=== PATIENT | male | born 1980 | race Caucasian/White ===

== ENCOUNTER → 2016-11-04 | Outpatient (CLI) | payer BC ==
--- NOTE | 2016-11-04 12:40 | PCVCIMAG ---
APPROVED REPORT Study performed: 11/04/2016 10:44:23 EXAM: Comprehensive 2D, Doppler, and color-flow Echocardiogram Status: routine Other Information Study Quality: Adequate Indications Aortic Valve Disease Atrial Fibrillation Ross Procedure with AVR 2D Dimensions LVEF(%): 60.49 (>50%) IVSd: 13.80 (7-11mm)LVOT Diam: 23.30 (18-24mm) LVDd: 58.65 mm PWd: 13.67 (7-11mm)Ascending Ao: 46.00 (22-36mm) LVDs: 39.40 (25-40mm) Left Atrium: 52.87 (27-40mm) Aortic Root: 47.22 mm LV Single Plane 4CH: 43.85 % LV Single Plane 2CH: 57.33 %Castillo's LVEF: 50.59 % Biplane EF: 50.6 % Volumes Left Atrial Volume (Systole) Single Plane 4CH: 133.72 mLSingle Plane 2CH: 110.92 mL LA ESV Index: 58.00 mL/m2 Aortic Valve AoV Peak Saurabh.: 2.02 m/s AO Peak Gr.: 16.30 mmHgLVOT Max P.69 mmHg AO Mean Gr.: 8.32 mmHgLVOT Mean P.05 mmHg AO V2 Mean: 1.35 m/sLVOT Max V: 1.39 m/s AO V2 VTI: 47.16 cmLVOT Mean V: 0.94 m/s LOLA (VTI): 2.86 [id number] V1 VTI: 31.60 cm LOLA Vmax: 2.93 cm2 AI Vmax: 4.02 m/sSV (LVOT): 134.65 mL AI Collin: 3.01 m/s2 AI PHT: 387.40 ms Mitral Valve MV Peak Gr.: 9.81 mmHg MV Mean Gr.: 3.33 mmHgE/A Ratio: 1.7 MV Decel. Time: 190.62 ms MV E Max Saurabh.: 1.49 m/s MV A Saurabh.: 0.89 m/s MV Max Saurabh.: 1.57 m/s MV Mean Saurabh.: 0.85 m/s MV VTI: 503.40 mm MVA VTI: 267.47 mm2 MV PHT: 102.96 ms MVA (PHT): 2.14 cm2 IVRT: 79.58 ms Pulmonary Valve PV Peak Saurabh.: 2.75 m/sPV Peak Gr.: 30.44 mmHg Pulmonary Vein P Vein S: 0.28 m/sP Vein A: 0.48 m/s P Vein D: 0.48 m/sP Vein A Dur.: 183.4 msec P Vein S/D Ratio: 0.58 Tricuspid Valve TR Peak Saurabh.: 3.35 m/s TR Peak Gr.: 44.87 mmHg Left Ventricle Left ventricle is borderline dilated. There is normal LV segmental wall motion. Mild concentric left ventricular hypertrophy. Left ventricular systolic function is within lower limits of normal. LVEF is 50%. Grade II - pseudonormal filling dynamics. Right Ventricle The right ventricle is normal size. The right ventricular systolic function is normal. Atria Left atrium is dilated. Right atrium is severely dilated. Aortic Valve Trileaflet pulmonic autograft in aortic position Moderate aortic regurgitation. Normally functioning AVR. Calculated aortic valve area is 2.9 cm2 with maximum pressure gradient of 16.3 mmHg and mean pressure gradient of 8.3 mmHg. Mitral Valve The mitral valve is normal in structure. Mild to moderate mitral regurgitation No evidence of mitral valve stenosis. Tricuspid Valve The tricuspid valve is normal in structure. Moderate tricuspid regurgitation with PAP of 55 mmHg. Pulmonic Valve Bioprosthetic pulmonic valve. Borderline pulmonic stenosis with peak velocity of 3 m/s and peak gradient of 36mmHg Mild pulmonic regurgitation. Great Vessels The aortic root is normal in size. The aortic root and ascending aorta are moderately dilated to 4.7 cm. IVC is normal in size and collapses with >50% inspiration Pericardium There is no pericardial effusion. <Conclusion> Left ventricular systolic function is within lower limits of normal. There is normal LV segmental wall motion. LVEF 50%. Left ventricle is borderline dilated. Left and right atria are dilated. Trileaflet pulmonic autograft in aortic position Calculated aortic valve area is 2.9 cm2 with maximum pressure gradient of 16.3 mmHg and mean pressure gradient of 8.3 mmHg. Moderate aortic regurgitation. The mitral valve is normal in structure.Mild to moderate mitral regurgitation Moderate tricuspid regurgitation with PAP of 50 mmHg. Bioprosthetic pulmonic valve, 30mmHg moderate pulmonic valve stenosis The aortic root and ascending aorta are moderately dilated to 4.7 cm. There is no pericardial effusion.
== END | disposition home or self-care (01) ==
LOC: PCVCIMAG 11:20
PROVIDERS: ATTEND Internal Medicine
DX: I48.0 Paroxysmal atrial fibrillation (principal); I08.3 Combined rheumatic disorders of mitral, aortic and tricuspid valves; I50.32 Chronic diastolic (congestive) heart failure; I45.89 Other specified conduction disorders; Q24.9 Congenital malformation of heart, unspecified; E78.5 Hyperlipidemia, unspecified; Z95.4 Presence of other heart-valve replacement; Z79.82 Long term (current) use of aspirin; Z79.899 Other long term (current) drug therapy; Z87.891 Personal history of nicotine dependence
CPT/HCPCS: 80061; 93005; 93306; G0463

== ENCOUNTER → 2017-10-20 | Outpatient (CLI) | payer OTHER, BC | END | disposition home or self-care (01) | LOC: PCVCIMAG 08:52 | DX: I08.8 Other rheumatic multiple valve diseases (principal); I48.1 Persistent atrial fibrillation; E78.5 Hyperlipidemia, unspecified; I71.2 Thoracic aortic aneurysm, without rupture; Z95.1 Presence of aortocoronary bypass graft; Z87.891 Personal history of nicotine dependence; Z79.899 Other long term (current) drug therapy; Z79.82 Long term (current) use of aspirin | CPT/HCPCS: 80061; 93005; 93306; G0463 ==

== ENCOUNTER → 2018-05-02 | Outpatient (CLI) | payer OTHER ==
--- NOTE | 2018-05-05 13:40 | PCVCIMAG ---
APPROVED REPORT Study performed: 05/02/2018 07:55:29 EXAM: Comprehensive 2D, Doppler, and color-flow Echocardiogram Patient Location: Echo lab Status: routine BSA: 2.32 HR: 60 bpmBP: 120/74 mmHg Other Information Study Quality: Adequate Risk Factors: Cardiac Risk Factors: HTN, Hyperlipidemia Indications Congential aortic stenosis. paroxysmal afib, pacemaker, Thoracic aortic aneurysm. 2D Dimensions IVSd: 13.58 (7-11mm)LVOT Diam: 24.93 (18-24mm) LVDd: 58.34 mm PWd: 12.80 (7-11mm)Ascending Ao: 49.61 (22-36mm) LVDs: 41.36 (25-40mm) Left Atrium: 50.89 (27-40mm) Aortic Root: 47.45 mm LV Single Plane 4CH: 32.79 % LV Single Plane 2CH: 37.51 % Biplane EF: 36.4 % Volumes Left Atrial Volume (Systole) Single Plane 4CH: 129.93 mLSingle Plane 2CH: 106.07 mL Aortic Valve AoV Peak Saurabh.: 2.04 m/s AO Peak Gr.: 16.62 mmHgLVOT Max P.11 mmHg AO Mean Gr.: 9.55 mmHgLVOT Mean P.59 mmHg AO V2 Mean: 1.49 m/sLVOT Max V: 1.51 m/s AO V2 VTI: 42.88 cmLVOT Mean V: 1.11 m/s LOLA (VTI): 3.41 [id number] V1 VTI: 29.98 cm LOLA Vmax: 3.61 cm2 AI Vmax: 3.94 m/sSV (LVOT): 146.28 mL AI Emmons: 3.09 m/s2 AI PHT: 369.65 ms Mitral Valve E/A Ratio: 1.2 MV Decel. Time: 227.36 ms MV E Max Saurabh.: 0.69 m/s MV A Saurabh.: 0.56 m/s IVRT: 76.12 ms Pulmonary Valve PV Peak Saurabh.: 3.11 m/sPV Peak Gr.: 38.63 mmHg Pulmonary Vein P Vein S: 0.40 m/sP Vein A: 0.24 m/s P Vein D: 0.34 m/sP Vein A Dur.: 103.8 msec P Vein S/D Ratio: 1.18 Tricuspid Valve TR Peak Saurabh.: 3.11 m/s TR Peak Gr.: 38.76 mmHg Left Ventricle The left ventricle is normal size. There is normal LV segmental wall motion. Mild concentric left ventricular hypertrophy. Left ventricular systolic function is mildly decreased. LVEF is 45-50%. Right Ventricle The right ventricle is normal size. The right ventricular systolic function is normal. Pacemaker lead is present in the right ventricle. Atria Left atrium is dilated. Right atrium is moderately dilated. Pacemaker lead is present in the right atrium. Aortic Valve Trileaflet pulmonic autograft. Mild to moderate insufficiency Calculated aortic valve is 3 cm2. Peak gradient is 17mmHg. Mean gradient is 10mmHg. Mitral Valve The mitral valve is normal in structure. Mild mitral regurgitation. No evidence of mitral valve stenosis. Tricuspid Valve The tricuspid valve is normal in structure. Mild tricuspid regurgitation. Pulmonary artery pressure is 45mmHg. Pulmonic Valve Bioprosthetic pulmonic valve. Pulmonic peak velocity of 2.7m/sec Mild to moderate pulmonic regurgitation. Great Vessels The aortic root is normal in size. The ascending aorta is dilated measuring up to 5.0cm. IVC is normal in size and collapses >50% with inspiration. Pericardium There is no pericardial effusion. <Conclusion> Left ventricular systolic function is mildly decreased. LVEF is 45-50%. Both atria are dilated. Trileaflet pulmonic autograft in aortic postition. Mild to moderate insufficiency Calculated aortic valve is 3 cm2. Peak gradient is 17mmHg. Mean gradient is 10mmHg. The mitral valve is normal in structure. Mild mitral regurgitation. Bioprosthetic pulmonic valve. Pulmonic peak velocity of 2.7m/sec. Mild to moderate pulmonic regurgitation. Mild tricuspid regurgitation. Pulmonary artery pressure is 45mmHg. There is no pericardial effusion. The ascending aorta is dilated (5.0cm).
== END | disposition home or self-care (01) ==
LOC: PCVCIMAG 08:05
PROVIDERS: ATTEND Internal Medicine
DX: I08.1 Rheumatic disorders of both mitral and tricuspid valves (principal); I71.2 Thoracic aortic aneurysm, without rupture; I48.0 Paroxysmal atrial fibrillation; I10 Essential (primary) hypertension; E78.5 Hyperlipidemia, unspecified
CPT/HCPCS: 93306